=== PATIENT | male | born 1940 ===

== ENCOUNTER 2018-01-03 08:54 | Outpatient (CLI) | payer OTHER | END 2018-01-03 09:40 | disposition home or self-care (01) | LOC: SONOGRAMA 08:54 | DX: R10.84 Generalized abdominal pain (principal) ==

== ENCOUNTER 2018-01-05 11:28 | Outpatient (CLI) | payer OTHER | END 2018-01-05 13:45 | disposition home or self-care (01) | LOC: TOM 11:28 | DX: K22.9 Disease of esophagus, unspecified (principal) | CPT/HCPCS: 71260; Q9965 ==